=== PATIENT | female | born 1965 | race Caucasian/White ===

== ENCOUNTER → 2019-05-05 08:59 | Outpatient (BNVA) | payer MEDICAID, SELFPAY | PROVIDERS: Family Provider Family Medicine; PCP Family Medicine; Visit Provider Anesthesiology | DX: G89.29 Other chronic pain (principal); M51.17 Intervertebral disc disorders with radiculopathy, lumbosacral region; M47.816 Spondylosis without myelopathy or radiculopathy, lumbar region; M51.27 Other intervertebral disc displacement, lumbosacral region; M54.2 Cervicalgia; F17.210 Nicotine dependence, cigarettes, uncomplicated | CPT/HCPCS: 62323; 77003; J1040; J2001; J3490 ==

== ENCOUNTER 2019-05-09 09:09 | Outpatient (CLI) | payer MEDICAID, SELFPAY ==
[2019-05-09 09:23] VITALS: BMI 30.9
--- NOTE | 2019-05-09 09:29 | ECG_ITS ---
NAME OF STUDY: LEXISCAN SESTAMIBI STRESS TEST INDICATION: Chest Pain PROCEDURE: At the baseline, the EKG revealed sinus bradycardia with poor R wave progression. Possible old septal ME.. The baseline blood pressure was 130/88 mm Hg with a heart rate of82 beats/min. Lexiscan was infused over a period of 20 seconds. A total of 0.4 milligrams of Lexiscan was infused. The stress phase was continued for a total of 5 minutes. Heart rate at the end of the stress phase was 83 with a blood pressure 142/88. The EKG at the peak infusion revealed no significant changes. Sestamibi was injected 20 seconds after the Lexiscan infusion. Blood pressure at the end of the recovery phase was 127/71 with a heart rate of 80 per minute. CONCLUSION: 1. No significant EKG changes with the LexiScan infusion 2. No LexiScan induced chest pain or cardiac arrhythmia 3. Normal blood pressure and heart rate response 4. Sestamibi/sestamibi perfusion scan pending; see separate report. Electronically Signed On 05-10-2019 10:02:57 MACHINE CLOTH EXAMINER by Jimmy Shaffer M.D. [email or web address]
--- NOTE | 2019-05-09 09:29 | NMCV_ITS ---
Vanita Ibrahim Age: 53 Gender: F : 1965 Exam Date: 05/09/2019 11:00 Ordering Phys: Devi Meade MD Technologist: KAMI Golden Exam Location: [facility] Indications: Chest Pain STRESS TEST Please see separate stress test report in [facility] for full findings IMAGE PROTOCOL Rest/Stress 1 Lexiscan Day Radiopharmaceutical Dose (mCi) Administration Site Administered by Rest: Tc-99m 10.5 IV KAMI Golden Sestamibi Stress:Tc-99m 32.6 IV KAMI Golden Sestamibi Rest: 09-May-2019 60 Discovery 630 Stress: 09-May-2019 60 Discovery 630 0.4mg Lexiscan. Images obtained in supine and prone position. SPECT RESULTS Technical Quality: Good Raw Data Analysis: Normal, Breast attenuation. 46DD chest wall Image Corrections: No attenuation or motion correction applied Summed Stress Score: 0 Summed Rest Score: 0 Summed Difference Score: 0 PERFUSION FINDINGS Slightly decreases uptake was noted in the anteroseptal regions but no significant reversibility. FUNCTIONAL RESULTS (calculated via Gated SPECT) Stress Image LV EF (%): 72 Stress EDV (mL):76 TID: 0.91 Stress ESV (mL):21 FUNCTIONAL FINDINGS: Segmental wall motion analysis revealed no gross wall motion normalities. IMPRESSIONS 1. Myocardial perfusion is revealing small areas of slightly decreased persistent tracer uptake in the anteroseptal regions, most likely represent attenuation artifacts. 2. Normal LV ejection fraction 72%. 3. LV wall motion analysis revealing no gross wall motion normalities. 4. Normal LV volume. No significant coronary ischemia, based on the above findings Dr Jimmy Shaffer MD FACC (Electronically Signed) Final Date: 09 May 2019 17:22 S
--- NOTE | 2019-05-09 12:13 | SUR.PREOP ---
Patient reports no pain or discomfort prior to the start of the procedure.
[2019-05-09] MEDS: regadenoson 0.4 Mg/5 ml Syringe IVP (12:14)
[2019-05-09 12:22] VITALS: BP 138/79; PULSE 91
== END 2019-05-09 09:10 | disposition home or self-care (01) ==
LOC: CDL 09:11
PROVIDERS: Family Provider Family Medicine; PCP Family Medicine; Visit Provider Family Medicine
DX: R07.9 Chest pain, unspecified (principal)
CPT/HCPCS: 78452; 93017; A9500; J2785

== ENCOUNTER → 2019-06-03 08:31 | Outpatient (BNVA) | payer MEDICAID, SELFPAY | PROVIDERS: Family Provider Family Medicine; PCP Family Medicine; Visit Provider Anesthesiology | DX: G89.29 Other chronic pain (principal); M47.816 Spondylosis without myelopathy or radiculopathy, lumbar region; M51.17 Intervertebral disc disorders with radiculopathy, lumbosacral region; M51.27 Other intervertebral disc displacement, lumbosacral region; M79.651 Pain in right thigh; M79.652 Pain in left thigh; F17.210 Nicotine dependence, cigarettes, uncomplicated; Z79.891 Long term (current) use of opiate analgesic; Z71.6 Tobacco abuse counseling | CPT/HCPCS: 99214 ==

== ENCOUNTER → 2019-09-21 10:28 | Outpatient (BNVA) | payer MEDICAID, SELFPAY | PROVIDERS: Family Provider Family Medicine; PCP Family Medicine; Visit Provider Nurse Practitioner | DX: G89.29 Other chronic pain (principal); M51.27 Other intervertebral disc displacement, lumbosacral region; M54.9 Dorsalgia, unspecified; M54.2 Cervicalgia; F17.210 Nicotine dependence, cigarettes, uncomplicated; Z79.891 Long term (current) use of opiate analgesic | CPT/HCPCS: 99213; 99214 ==

== ENCOUNTER → 2019-11-29 08:40 | Outpatient (BNVA) | payer MEDICAID, SELFPAY | PROVIDERS: Family Provider Family Medicine; PCP Family Medicine; Visit Provider Anesthesiology | DX: G89.29 Other chronic pain (principal); M54.2 Cervicalgia; M47.816 Spondylosis without myelopathy or radiculopathy, lumbar region; M51.17 Intervertebral disc disorders with radiculopathy, lumbosacral region; M51.27 Other intervertebral disc displacement, lumbosacral region; M54.9 Dorsalgia, unspecified; F17.210 Nicotine dependence, cigarettes, uncomplicated; Z79.891 Long term (current) use of opiate analgesic | CPT/HCPCS: 99214 ==

== ENCOUNTER 2020-01-11 07:10 | Outpatient (CLI) | payer MEDICAID, SELFPAY ==
--- NOTE | 2020-01-11 07:25 | MM_ITS ---
WS: [id number] BILATERAL SCREENING DIGITAL MAMMOGRAM WITH CAD HISTORY: SCREEN COMPARISON: 12/02/2018 and 04/08/2017 Bilateral CC and MLO views submitted. Computer aided detection analyzed. Breast composition: There are scattered areas of fibroglandular density. No suspicious masses, microc alcifications or architectural distortion. Stable asymmetry lateral posterior RIGHT breast. MM/[place] [id number] IMPRESSION: BI-RADS: 2-Benign FOLLOW UP: 1 Year Follow-up
== END 2020-01-11 07:11 | disposition home or self-care (01) ==
PROVIDERS: PCP Family Medicine; Visit Provider Family Medicine
DX: Z12.31 Encounter for screening mammogram for malignant neoplasm of breast (principal)
CPT/HCPCS: 77067

== ENCOUNTER 2020-01-25 07:46 | Outpatient (CLI) | payer MEDICAID, SELFPAY ==
--- NOTE | 2020-01-25 08:15 | MR_ITS ---
WS: [id number] MRI CERVICAL SPINE with and without contrast. HISTORY: Multiple sclerosis. COMPARISON: 12/09/2018 Less than 2 mm retrolisthesis of C4 and C5. No fractures or marrow signal abnormality. Mild disc space narrowing and desiccation at C4-5 and C5-6. Craniocervical junction, C1 and C2 relationship, odontoid process and soft tissues are normal. C2-C3: Normal. C3-C4: Normal. C4-C5: Shallow central disc protrusion with contact on the ventral cord. No signal abnormality within the cord or interval change. Mild central and bilateral foraminal stenosis due to disc and osteophyt e disease. C5-C6: Broad-based disc protrusion centrally with mild central and bilateral foraminal stenosis due t o disc osteophyte disease. C6-C7: Normal. C7-T1: Normal. Signal within the cord is normal. No demyelinating lesions are identified. No enhancing lesions are i dentified within the cord to suggest active demyelination. Increased T2 signal in the francisca will be be tter evaluated on the MRI brain to follow. There is very mild heterogeneity within the cervical cord on the postcontrast images. No corresponding findings on the STIR or precontrast imaging. I suspect t his signal abnormality is related to artifact. MR/MR cervical spine wo/w [id number] IMPRESSION: 1. No active demyelination within the cervical cord. 2. Mild central and foraminal stenosis due to disc osteophyte disease at C4-5 and C5-6 is unchanged.
--- NOTE | 2020-01-25 08:15 | MR_ITS ---
WS: [id number] MRI BRAIN WITH AND WITHOUT CONTRAST HISTORY: MS COMPARISON: 12/09/2018 TECHNIQUE: Multiplanar imaging performed through the brain with Prohance 17 ml's IV. No acute infarcts are seen. Moreira-white matter differentiation is well preserved. There are numerous T 2 and FLAIR signal white matter hyperintensities noted bilaterally in the frontal parietal and tempor al subcortical white matter, periventricular white matter, herrera radiata and the francisca. No significan t progression of demyelinating disease. There are no acute infarcts. Area of increased signal at the base of the francisca is probably a crossing vessel. No enhancement. No susceptibility artifacts or prior lacunar infarcts. Ventricles and extra-axial spaces are normal. Clivus and pituitary gland are normal. There is no enhancement within the demyelinating lesions. Dural venous sinuses are normal. Paranasal sinuses: Well aerated with no significant disease. Mastoid air cells: Normal. Calvarium and scalp: Normal. MR/MR head wo/w con [id number] IMPRESSION: 1. Numerous white matter lesions consistent with demyelination from multiple s clerosis are again noted. Stable in size and number with no active demyelinatio n. 2. No acute infarct.
== END 2020-01-25 07:47 | disposition home or self-care (01) ==
LOC: RADWPI 07:50
PROVIDERS: PCP Family Medicine; Visit Provider Psychiatry & Neurology Neurology
DX: G35 Multiple sclerosis (principal); M48.02 Spinal stenosis, cervical region; M25.78 Osteophyte, vertebrae
CPT/HCPCS: 70553; 72156; A9579

== ENCOUNTER → 2020-01-27 08:55 | Outpatient (BNVA) | payer MEDICAID, SELFPAY | PROVIDERS: PCP Family Medicine; Visit Provider Anesthesiology | DX: G89.29 Other chronic pain (principal); M47.816 Spondylosis without myelopathy or radiculopathy, lumbar region; M51.27 Other intervertebral disc displacement, lumbosacral region; M51.17 Intervertebral disc disorders with radiculopathy, lumbosacral region; M54.2 Cervicalgia; M54.9 Dorsalgia, unspecified; F17.210 Nicotine dependence, cigarettes, uncomplicated; Z79.891 Long term (current) use of opiate analgesic | CPT/HCPCS: 99214 ==

== ENCOUNTER 2020-02-08 20:35 | Emergency (ER) | payer MEDICAID, SELFPAY ==
[2020-02-08 20:42] VITALS: BP 116/80; PULSE 104; RESP 18; TEMP 36.4; O2SAT 97; BMI 31.7
--- NOTE | 2020-02-08 20:51 | ED_ITS ---
HPI - Back Pain/Injury General: Chief Complaint: Back Pain/Injury Stated Complaint: BACK PAIN Time Seen by Provider: 02/08/20 20:48 History of Present Illness: HPI Narrative: History of chronic back pain that had many exacerbations. Patient is 1 of those presently. Says she spent the whole day clean the house now her back hurts. Denies any injury. The pain clinic patient. MD elicited complaint: back pain Pertinent past history: prior back pain Onset (ago): hour(s) Timing: constant Severity: similar to previous episodes Similar Symptoms Previously: Yes Quality: sharp and stabbing Location: lumbar spine Radiation: left upper leg and right upper leg Exacerbating factors: movement Relieving factors: none Context: while lifting, turning/twisting and bending Associated symptoms: Reports no associated symptoms; Deny abdominal pain, chills, fever(s), nausea or vomiting Review of Systems Const: Denies: fever(s), chills or body aches Eyes: Denies: change in vision or blurry vision ENMT: Denies: throat pain or nasal congestion Card: Denies: chest pain or dyspnea on exertion Resp: Denies: dyspnea, productive cough or non-productive cough GI: Denies: abdominal pain, nausea or vomiting Musc: Reports: back pain; Denies: extremity pain Skin/Breast: Denies: rash Neuro: Denies: headache(s) Psych: Denies: anxiety or depression Moy/Lymph: Denies: easy bruising PFSH ED PFSH: Medical History Arthritis of lumbar spine Chronic neck and back pain Cigarette smoker Displacement of intervertebral disc of lumbosacral region Encounter for long-term use of opiate analgesic Opioid contract exists Sciatic 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, lumbar region Surgical History H/O arthroscopic knee surgery History of cholecystectomy History of hysterectomy Family History Other CAD (coronary artery disease) Cancer Diabetes Stroke Social History Smoking and tobacco status: current every day smoker cigarettes Packs smoked per day: 1 Alcohol intake: former Physical Exam Const: COMMON NORMALS: no acute distress, average body habitus and patient oriented x3 HENMT: COMMON NORMALS: normocephalic HEAD & SCALP: normal to inspection and normocephalic FACE & SINUS: normal facial exam Eye: COMMON NORMALS: conjunctivae normal GENERAL EYE: appearance normal, both eyes and all related structures CONJUNCTIVA: Yes conjunctivae normal Neck/C-Spine: COMMON NORMALS: no JVD Chest: COMMONS NORMALS: normal inspection of the chest Resp: COMMON NORMALS: normal respiratory effort Cardio: COMMON NORMALS: no JVD and regular rhythm RATE: tachycardic RHYTHM: regular rhythm GI: COMMON NORMALS: Normal to inspection, nondistended, normoactive bowel sounds present Back/Pelvis: LUMBAR SPINE/LOWER BACK: Yes straight leg raise positive right and Yes straight leg raise positive left Extremity: COMMON NORMALS: normal to inspection Neuro: COMMON NORMALS: patient oriented x3 Course Vital Signs: Vital signs: Vital Signs Temperature 97.6 F 02/08/20 20:42 Pulse Rate 104 H 02/08/20 20:42 Respiratory Rate 18 02/08/20 20:42 Blood Pressure 116/80 02/08/20 20:42 Pulse Oximetry 97 02/08/20 20:42 Discharge Plan Discharge Prescriptions: No Action duloxetine [Cymbalta] 60 mg capsule,delayed release(DR/EC) 60 mg PO QDAY RF: 0 cyanocobalamin (vitamin B-12) [Vitamin B-12] 100 mcg tablet 300 mcg PO QDAY RF: 0 cholecalciferol (vitamin D3) 1,000 unit capsule 3,000 unit PO QDAY RF: 0 potassium gluconate 595 mg (99 mg) tablet 1,785 mg PO QDAY RF: 0 pramipexole 0.25 mg tablet 0.75 mg PO QDAY RF: 0 Gilenya 0.5 mg capsule 0.5 mg PO QDAY RF: 0 lisinopril 10 mg tablet 10 mg PO BID RF: 0 modafinil [Provigil] 100 mg tablet 200 mg PO .1/2 TID RF: 0 furosemide 20 mg tablet See Rx Instructions PO DAILY PRN (Reason: edema) RF: 0 omeprazole 20 mg capsule,delayed release(DR/EC) 20 mg PO DAILY RF: 0 magnesium 250 mg tablet 250 mg PO DAILY RF: 0 hydrocodone-acetaminophen 10-325 mg tablet 1 tab PO QID PRN (Reason: pain) 30 Days Qty: 120 RF: 0 hydrocodone-acetaminophen 10-325 mg tablet 1 tab PO QID PRN (Reason: pain) 30 Days Qty: 120 RF: 0 tramadol 50 mg tablet 50 mg PO QID PRN (Reason: pain) 30 Days Qty: 120 RF: 1 tizanidine 4 mg tablet 4 mg PO TID PRN (Reason: muscle spasticity) Qty: 90 RF: 1 naproxen 500 mg tablet,delayed release (DR/EC) 500 mg PO BID 30 Days Qty: 60 RF: 1 Coding Level of Care Code ED Process Supervisor for Shaniqua Palumbo
[2020-02-08] MEDS: ketorolac 60 mg/2 mL INJ IM (21:28)
[2020-02-08] MEDS: methylPREDNISolone (DEPO) 80 MG/ML INJ 1 mL IM (21:29)
[2020-02-08] MEDS: promethazine 25 mg/mL SDV 1 mL IM (21:29)
[2020-02-08 21:49] VITALS: PULSE 86; RESP 17; O2SAT 98
[2020-02-08 21:50] VITALS: BP 116/83; PULSE 82; RESP 16; O2SAT 97
== END 2020-02-08 21:51 | disposition home or self-care (01) ==
PROVIDERS: Emergency Provider Nurse Practitioner Family; PCP Family Medicine
DX: M54.9 Dorsalgia, unspecified (principal); F17.210 Nicotine dependence, cigarettes, uncomplicated
CPT/HCPCS: 12345; 96372; 99281; 99283; J1040; J1885; J2550

== ENCOUNTER 2020-02-23 12:00 | Outpatient (CLI) | payer MEDICAID, SELFPAY | END 2020-02-23 12:01 | disposition home or self-care (01) | LOC: SLEEP 02-24 11:58 | PROVIDERS: PCP Family Medicine; Visit Provider Psychiatry & Neurology Neurology | DX: G47.30 Sleep apnea, unspecified (principal) | CPT/HCPCS: G0399 ==

== ENCOUNTER → 2020-03-22 10:34 | Outpatient (BNVA) | payer MEDICARE, MEDICAID, SELFPAY | PROVIDERS: PCP Family Medicine; Visit Provider Anesthesiology | DX: G89.29 Other chronic pain (principal); M47.816 Spondylosis without myelopathy or radiculopathy, lumbar region; M51.27 Other intervertebral disc displacement, lumbosacral region; M51.17 Intervertebral disc disorders with radiculopathy, lumbosacral region; M54.2 Cervicalgia; M54.9 Dorsalgia, unspecified; F17.210 Nicotine dependence, cigarettes, uncomplicated; Z79.891 Long term (current) use of opiate analgesic; Z79.1 Long term (current) use of non-steroidal anti-inflammatories (NSAID) | CPT/HCPCS: 99214 ==

== ENCOUNTER → 2020-05-02 09:53 | Outpatient (BNVA) | payer MEDICARE, MEDICAID, SELFPAY | PROVIDERS: PCP Family Medicine; Visit Provider Nurse Practitioner | DX: G89.29 Other chronic pain (principal); M54.9 Dorsalgia, unspecified; M47.816 Spondylosis without myelopathy or radiculopathy, lumbar region; M51.17 Intervertebral disc disorders with radiculopathy, lumbosacral region; M51.27 Other intervertebral disc displacement, lumbosacral region; M54.2 Cervicalgia; F17.210 Nicotine dependence, cigarettes, uncomplicated; Z79.891 Long term (current) use of opiate analgesic | CPT/HCPCS: 99213 ==

== ENCOUNTER 2020-06-14 06:59 | Outpatient (CLI) | payer MEDICARE, MEDICAID, SELFPAY ==
[2020-06-14 07:21] VITALS: BMI 33.1
--- NOTE | 2020-06-14 07:26 | ECG_ITS ---
[facility] Test Date: 2020-06-14 Pat Name: Vanita Ibrahim Department: Room: Gender: Female Contracts Intern: : 1965 Requested By: Devi Carson Order Number: [id number] Velasquez MD: Carla Najera M.D. Interpretive Statements NAME OF STUDY: EXERCISE SESTAMIBI STRESS TEST INDICATION: Chest Pain Baseline blood pressure of 126/88 mm Hg, heart rate 76 beats per minute and oxygen saturation 97%. EKG showed normal sinus rhythm, normal axis with possible old anteroseptal infarct. The patient exercised for 5 minutes 1 second on a standard Vernon protocol. Patient attained a maximum heart rate of 152 beats per minute(90% of the maximum predicted heart rate) with a blood pressure at the peak exercise of 164/91 mm Hg and oxygen saturation 98%. The EKG at the peak exercise revealed sinus tachycardia. No significant ST-T wave changes however interpretation limited by marked baseline artifact. Patient did not have any chest pain or any significant arrhythmis with the exercise. Study was terminated due to exertional dyspnea and fatigue. During the recovery phase, there were no new changes. Blood pressure at the end of the recovery phase was 120/79 mm Hg with a heart rate of 92 beats per minute and oxygen saturation 96%. CONCLUSION: 1. Normal EKG response to treadmill exercise. However interpretation is of limited sensitivity given marked baseline artifact during exercise. 2. No exercise-induced chest pain or cardiac arrhythmia 3. Decreased for age exercise tolerance, attained a maximum of 7 METs. Maximum VO2 of 24.5 mL/kg/min. 4. Baseline normal blood pressure with normal response to exercise. 5. Perfusion scan will be documented separately. Electronically Signed On 06-14-2020 12:23:35 ERISA ATTORNEY by Carla Najera M.D. [id number]
--- NOTE | 2020-06-14 07:27 | NMCV_ITS ---
NM nancy perf SPECT r/s* [id number] Vanita Ibrahim Age: 54 Gender: F : 1965 Exam Date: 06/14/2020 08:10 Ordering Phys: Devi Meade MD Technologist: KAMI Lamb Exam Location: [facility] Indications: CHEST PAIN STRESS TEST Please see separate stress test report [facility] for full findings IMAGE PROTOCOL Rest/Stress 1 Exercise Day Radiopharmaceutical Dose (mCi) Administration Site Administered by Rest: Tc-99m 10.8 IV KAMI Cesar Sestamibi Stress:Tc-99m 32.3 IV KAMI Cesar Sestamibi Rest: 14-Jun-2020 60 Discovery 630 Stress: 14-Jun-2020 15 Discovery 630 Radiopharmaceutical was injected at 85 % maximum heart rate. Images obtained in supine and prone position. SPECT RESULTS Technical Quality: Excellent Raw Data Analysis: Normal Image Corrections: No attenuation or motion correction applied Summed Stress Score: 0 Summed Rest Score: 0 Summed Difference Score: 0 PERFUSION FINDINGS SPECT images demonstrate homogeneous tracer distribution throughout the myocardium. FUNCTIONAL RESULTS (calculated via Gated SPECT) Stress Image LV EF (%): 77 Stress EDV (mL):73 TID: 0.76 Stress ESV (mL):17 FUNCTIONAL FINDINGS: The left ventricle is normal in size. Transient Ischemia Dilatation of 0.76. There is normal left ventricular systolic function. The left ventricular ejection fraction is normal with a value of 77%. There is normal left ventricular wall thickening. No regional wall motion abnormality. Normal end-diastolic and end-systolic volumes. IMPRESSIONS 1. Myocardial perfusion imaging is normal. 2. Overall left ventricular systolic function is normal without regional wall motion abnormalities. 3. The left ventricular ejection fraction is normal with a value of 77%. 4. This study suggests a low likelihood of angiographically significant coronary artery disease. 5. No ischemic EKG changes noted, however interpretation was limited by marked baseline artifact. Refer to the EKG portion of the study for details Carla Najera MD (Electronically Signed) Final Date: 14 June 2020 12:31 S
--- NOTE | 2020-06-14 08:58 | SUR.PREOP ---
Patient reports no pain or discomfort prior to the start of the stress test.
[2020-06-14 09:30] VITALS: BP 119/63; PULSE 90
== END 2020-06-14 07:00 | disposition home or self-care (01) ==
LOC: CDL 07:00
PROVIDERS: PCP Family Medicine; Visit Provider Family Medicine
DX: R07.9 Chest pain, unspecified (principal)
CPT/HCPCS: 78452; 93017; A9500

== ENCOUNTER → 2020-06-27 09:03 | Outpatient (BNVA) | payer MEDICARE, MEDICAID, SELFPAY | PROVIDERS: PCP Family Medicine; Visit Provider Nurse Practitioner | DX: G89.29 Other chronic pain (principal); M54.2 Cervicalgia; M54.9 Dorsalgia, unspecified; M51.17 Intervertebral disc disorders with radiculopathy, lumbosacral region; M51.27 Other intervertebral disc displacement, lumbosacral region; M47.816 Spondylosis without myelopathy or radiculopathy, lumbar region; F17.210 Nicotine dependence, cigarettes, uncomplicated; Z79.891 Long term (current) use of opiate analgesic; Z71.6 Tobacco abuse counseling | CPT/HCPCS: 99213; 99214 ==

== ENCOUNTER 2020-07-30 20:00 | Outpatient (CLI) | payer MEDICARE, MEDICAID, SELFPAY | END 2020-07-30 20:01 | disposition home or self-care (01) | LOC: SLEEP 07-31 11:11 | PROVIDERS: PCP Family Medicine; Visit Provider Internal Medicine Pulmonary Disease | DX: G47.33 Obstructive sleep apnea (adult) (pediatric) (principal) | CPT/HCPCS: 95811 ==

== ENCOUNTER 2020-07-31 07:00 | Outpatient (CLI) | payer MEDICARE, MEDICAID, SELFPAY | END 2020-07-31 20:01 | disposition home or self-care (01) | LOC: SLEEP 08-08 11:31 | PROVIDERS: PCP Family Medicine; Visit Provider Internal Medicine Pulmonary Disease | DX: G47.10 Hypersomnia, unspecified (principal) | CPT/HCPCS: 95805 ==

== ENCOUNTER 2020-08-24 13:55 | Outpatient (CLI) | payer MEDICARE, MEDICAID, SELFPAY ==
--- NOTE | 2020-08-24 14:07 | XR_ITS ---
WS: [id number] Right hand, 3 views, 08/24/2020 Clinical Data: RIGHT TRIGGER THUMB Comparison: None. Findings: No fractures or dislocations are seen. The soft tissues are unremarkable. The joint space s are normal XR/XR hand RT min 3V* [id number] Impression: Negative right hand.
== END 2020-08-24 13:56 | disposition home or self-care (01) ==
PROVIDERS: PCP Family Medicine; Visit Provider Family Medicine
DX: M65.311 Trigger thumb, right thumb (principal)
CPT/HCPCS: 73130

== ENCOUNTER → 2020-08-31 08:43 | Outpatient (BNVA) | payer MEDICARE, MEDICAID, SELFPAY | PROVIDERS: PCP Family Medicine; Visit Provider Nurse Practitioner | DX: G89.29 Other chronic pain (principal); M54.9 Dorsalgia, unspecified; M51.17 Intervertebral disc disorders with radiculopathy, lumbosacral region; M51.27 Other intervertebral disc displacement, lumbosacral region; M47.816 Spondylosis without myelopathy or radiculopathy, lumbar region; M54.2 Cervicalgia; F17.210 Nicotine dependence, cigarettes, uncomplicated; Z79.899 Other long term (current) drug therapy; Z79.891 Long term (current) use of opiate analgesic | CPT/HCPCS: 99214 ==

== ENCOUNTER → 2020-09-03 11:05 | Outpatient (BNVA) | payer MEDICARE, MEDICAID, SELFPAY | PROVIDERS: PCP Family Medicine; Referring Provider Family Medicine; Visit Provider Specialist | DX: R20.0 Anesthesia of skin (principal); R20.2 Paresthesia of skin; F17.210 Nicotine dependence, cigarettes, uncomplicated | CPT/HCPCS: 95908 ==

== ENCOUNTER 2020-09-05 15:05 | Outpatient (CLI) | payer MEDICARE, MEDICAID, SELFPAY | END 2020-09-05 15:06 | disposition home or self-care (01) | LOC: SPT 15:06 | PROVIDERS: PCP Family Medicine; Visit Provider Orthopaedic Surgery | DX: Z46.89 Encounter for fitting and adjustment of other specified devices (principal); M65.311 Trigger thumb, right thumb; G56.01 Carpal tunnel syndrome, right upper limb | CPT/HCPCS: 97760; L3809 ==

== ENCOUNTER → 2020-09-13 14:25 | Outpatient (BNVA) | payer MEDICARE, MEDICAID, SELFPAY | PROVIDERS: PCP Family Medicine; Visit Provider Internal Medicine Pulmonary Disease | DX: J44.9 Chronic obstructive pulmonary disease, unspecified (principal) | CPT/HCPCS: 87635 ==

== ENCOUNTER 2020-09-19 07:43 | Outpatient (CLI) | payer MEDICARE, MEDICAID, SELFPAY ==
--- NOTE | 2020-09-19 09:46 | PFTS_ITS ---
Date of Study:09/19/20 Date of Dictation: MECHANICS: Forced vital capacity (FVC) is normal. Forced expiratory volume in one second (FEV1) is normal. FEV1/FVC is normal. FLOW VOLUME LOOP: Normal. LUNG VOLUMES: Total lung capacity (TLC) is normal. Residual volume (RV) is increased. DIFFUSING CAPACITY FOR CARBON MONOXIDE: Normal. INTERPRETATION: The postbronchodilator spirometry is normal. There is some improvement in FEV1 postbronchodilator, however it did not reach a steady state of significance. Lung volumes are consistent with air trapping. Gas exchange (DLCO) is normal. MTDD
== END 2020-09-19 07:44 | disposition home or self-care (01) ==
LOC: RT 07:47
PROVIDERS: PCP Family Medicine; Visit Provider Internal Medicine Pulmonary Disease
DX: J44.9 Chronic obstructive pulmonary disease, unspecified (principal)
CPT/HCPCS: 94060; 94726; 94729; J7611

== ENCOUNTER → 2020-11-02 08:21 | Outpatient (BNVA) | payer MEDICARE, MEDICAID, SELFPAY | PROVIDERS: PCP Family Medicine; Visit Provider Nurse Practitioner | DX: G89.29 Other chronic pain (principal); M51.17 Intervertebral disc disorders with radiculopathy, lumbosacral region; M47.816 Spondylosis without myelopathy or radiculopathy, lumbar region; M54.2 Cervicalgia; F17.210 Nicotine dependence, cigarettes, uncomplicated; Z79.891 Long term (current) use of opiate analgesic; Z71.6 Tobacco abuse counseling | CPT/HCPCS: 99214; 99406 ==

== ENCOUNTER → 2020-12-04 08:42 | Outpatient (BNVA) | payer MEDICARE, MEDICAID, SELFPAY | PROVIDERS: PCP Family Medicine; Visit Provider Nurse Practitioner | DX: G89.29 Other chronic pain (principal); M47.816 Spondylosis without myelopathy or radiculopathy, lumbar region; M51.27 Other intervertebral disc displacement, lumbosacral region; M51.17 Intervertebral disc disorders with radiculopathy, lumbosacral region; M54.2 Cervicalgia; F17.210 Nicotine dependence, cigarettes, uncomplicated; Z79.891 Long term (current) use of opiate analgesic | CPT/HCPCS: 99214 ==

== ENCOUNTER → 2021-01-02 09:00 | Outpatient (BNVA) | payer MEDICARE, MEDICAID, SELFPAY | PROVIDERS: PCP Family Medicine; Visit Provider Nurse Practitioner | DX: G89.29 Other chronic pain (principal); M51.17 Intervertebral disc disorders with radiculopathy, lumbosacral region; M47.816 Spondylosis without myelopathy or radiculopathy, lumbar region; M51.27 Other intervertebral disc displacement, lumbosacral region; M54.2 Cervicalgia; R20.0 Anesthesia of skin; R20.2 Paresthesia of skin; F17.210 Nicotine dependence, cigarettes, uncomplicated; Z79.891 Long term (current) use of opiate analgesic; Z71.6 Tobacco abuse counseling | CPT/HCPCS: 99213; 99214 ==

== ENCOUNTER → 2021-02-27 08:35 | Outpatient (BNVA) | payer MEDICARE, MEDICAID, SELFPAY | PROVIDERS: PCP Family Medicine; Visit Provider Anesthesiology | DX: G89.29 Other chronic pain (principal); M47.816 Spondylosis without myelopathy or radiculopathy, lumbar region; M51.27 Other intervertebral disc displacement, lumbosacral region; M51.17 Intervertebral disc disorders with radiculopathy, lumbosacral region; M54.2 Cervicalgia; F17.200 Nicotine dependence, unspecified, uncomplicated; Z79.891 Long term (current) use of opiate analgesic; Z79.899 Other long term (current) drug therapy; Z71.6 Tobacco abuse counseling | CPT/HCPCS: 99214 ==

== ENCOUNTER → 2021-04-26 08:51 | Outpatient (BNVA) | payer MEDICARE, MEDICAID, SELFPAY | PROVIDERS: PCP Family Medicine; Visit Provider Anesthesiology | DX: G89.29 Other chronic pain (principal); M47.816 Spondylosis without myelopathy or radiculopathy, lumbar region; M51.27 Other intervertebral disc displacement, lumbosacral region; M51.17 Intervertebral disc disorders with radiculopathy, lumbosacral region; M54.2 Cervicalgia; F17.200 Nicotine dependence, unspecified, uncomplicated; Z79.899 Other long term (current) drug therapy; Z79.891 Long term (current) use of opiate analgesic | CPT/HCPCS: 99214 ==

== ENCOUNTER 2021-07-30 14:48 | Outpatient (CLI) | payer MEDICARE, MEDICAID, SELFPAY ==
--- NOTE | 2021-07-30 14:55 | MM_ITS ---
WS: [id number] BILATERAL 3D TOMOSYNTHESIS DIGITAL SCREENING MAMMOGRAPHY WITH CAD CLINICAL INFORMATION: SCREENING HISTORY: Screening mammogram. No current complaints. COMPARISON: January 11, 2020 TECHNIQUE: Bilateral CC and MLO views. FINDINGS: Scattered fibroglandular densities bilaterally. No suspicious focal mass, asymmetry, calcifications, or architectural distortion. No evidence of malignancy. MM/[place] [id number] IMPRESSION: BI-RADS: 1-Negative FOLLOW UP: 1 Year Follow-up Recommend return to annual screening mammography.
== END 2021-07-30 14:49 | disposition home or self-care (01) ==
LOC: RAD 14:51
PROVIDERS: PCP Family Medicine; Visit Provider Family Medicine
DX: Z12.31 Encounter for screening mammogram for malignant neoplasm of breast (principal)
CPT/HCPCS: 77063; 77067

== ENCOUNTER → 2021-10-11 09:50 | Outpatient (BNVA) | payer MEDICARE, MEDICAID, SELFPAY | PROVIDERS: PCP Family Medicine; Visit Provider Internal Medicine Pulmonary Disease | DX: G47.33 Obstructive sleep apnea (adult) (pediatric) (principal); F17.210 Nicotine dependence, cigarettes, uncomplicated; J44.9 Chronic obstructive pulmonary disease, unspecified; Z12.2 Encounter for screening for malignant neoplasm of respiratory organs; Z71.6 Tobacco abuse counseling | CPT/HCPCS: 99214 ==

== ENCOUNTER 2022-02-27 09:49 | Outpatient (CLI) | payer MEDICARE, MEDICAID, SELFPAY ==
--- NOTE | 2022-02-27 10:33 | CT_ITS ---
WS: [id number] LDCT LUNG CANCER SCREENING HISTORY: lung screening TECHNIQUE: Axial imaging performed from the apices to 1 cm below the costophrenic angles. Coronal and sagittal reformats are submitted with axial MIP series. All CT scans at [facility] use at least one of these dose optimization techniques: automated exposure control; mA and/or kV adjustment per patient size (includes targeted exams where dose is matched to clinical indication); or iterativ e reconstruction. DLP: 82.30 mGy.cm DIvol: Mean CTDIvol: 1.60 (mGy) COMPARISON: None available. Diagnostic quality: Satisfactory Lung Nodules: No pulmonary nodule or mass. No endobronchial lesions. Lungs: No abnormality. Heart: Normal size heart. No pericardial effusion. Other findings: Normal aorta. Prior cholecystectomy. CT/CT lung screening [id number] IMPRESSION: LUNG-RADS: 1-Negative FOLLOW UP: 12 Month: Continue annual screening with LDCT OTHER FINDINGS (S MODIFIER): None.
== END 2022-02-27 09:50 | disposition home or self-care (01) ==
LOC: RAD 09:50
PROVIDERS: PCP Family Medicine; Visit Provider Internal Medicine Pulmonary Disease
DX: Z12.2 Encounter for screening for malignant neoplasm of respiratory organs (principal); F17.210 Nicotine dependence, cigarettes, uncomplicated
CPT/HCPCS: 71271

== ENCOUNTER 2022-03-01 21:19 | Emergency (ER) | payer MEDICARE, MEDICAID, SELFPAY ==
[2022-03-01 21:23] VITALS: BP 132/80; PULSE 92; RESP 18; TEMP 37.5; O2SAT 92
--- NOTE | 2022-03-01 21:31 | XRR_ITS ---
PROCEDURE INFORMATION: Exam: XR Chest Exam date and time: 03/01/2022 11:03 PM Age: 56 years old Clinical indication: Cough; Additional info: Cough, fever TECHNIQUE: Imaging protocol: Radiologic exam of the chest. Views: 1 view. COMPARISON: CR XR chest 1V [id number] 10/08/2017 8:35 PM FINDINGS: Lungs: No consolidation. Pleural spaces: No pleural effusion. No pneumothorax. Heart/Mediastinum: No cardiomegaly. Bones/joints: Unremarkable. XR/XR chest 1V portable [id number] IMPRESSION: 1. No acute abnormality demonstrated. 2. There is no interval change from the prior examination.
--- NOTE | 2022-03-01 21:45 | ED_ITS ---
HPI - Fever General: Chief Complaint: Fever Stated Complaint: FEVER Time Seen by Provider: 03/01/22 21:38 History of Present Illness: A 56-year-old female comes in today with complaints of fever for the last 2 days. Patient has generalized malaise. Patient appears unwell but not toxic. Patient appears in mild to no pain. Associated symptoms: Deny chest pain, diarrhea, nausea or vomiting Review of Systems Const: Reports: fever(s) and fatigue ENMT: Denies: throat pain Card: Denies: chest pain Resp: Denies: dyspnea GI: Denies: nausea, vomiting, diarrhea or constipation : Denies: difficulty voiding Musc: Reports: other (Muscle aches) Skin/Breast: Denies: rash PFSH ED PFSH: Medical History Arthritis of lumbar spine Chronic neck and back pain Cigarette smoker Displacement of intervertebral disc of lumbosacral region Encounter for long-term use of opiate analgesic Opioid contract exists Sciatic radiculitis Smoker unmotivated to quit Spondylosis without myelopathy or radiculopathy, lumbar region Surgical History H/O arthroscopic knee surgery History of cholecystectomy History of hysterectomy Family History Other CAD (coronary artery disease) Cancer Diabetes Stroke Social History Smoking and tobacco status: current every day smoker cigarettes Packs smoked per day: 1.5 Years cigarettes smoked: 35 Quit status (tobacco): considering quitting Second hand smoke exposure: No Smoking risk assessment/counseling performed?: Yes Alcohol intake: former Lives independently: Yes Household members: significant other Marital status: Life Partner Current occupational status: disabled Pets and animals: Yes History of recent travel: No Current gender identity: Female Physical Exam Const: COMMON NORMALS: alert HENMT: COMMON NORMALS: normocephalic HEAD & SCALP: normocephalic Eye: GENERAL EYE: appearance normal, both eyes and all related structures Neck/C-Spine: COMMON NORMALS: full ROM and no meningeal signs Chest: COMMONS NORMALS: normal inspection of the chest Resp: COMMON NORMALS: normal respiratory effort and clear to auscultation bilaterally AUSCULTATION: clear to auscultation bilaterally Cardio: COMMON NORMALS: regular rate and regular rhythm RATE: regular rate RHYTHM: regular rhythm GI: COMMON NORMALS: Soft to palpation and non-tender PALPATION: Yes Soft to palpation : COMMON NORMALS: Yes no CVA tenderness BLADDER/KIDNEY EXAM: Yes no CVA tenderness Back/Pelvis: COMMON NORMALS: no CVA tenderness Extremity: COMMON NORMALS: no pedal edema Neuro: SENSORIUM/ORIENTATION: Yes alert MENINGEAL SIGNS: Yes no meningeal signs Skin: COMMON NORMALS: no rashes or lesions noted GENERAL SKIN EXAM: no rashes or lesions noted Course Vital Signs: Vital signs: Vital Signs Temperature 99.5 F 03/01/22 21:23 Pulse Rate 79 03/01/22 22:16 Respiratory Rate 16 03/01/22 22:16 Blood Pressure 100/56 03/01/22 22:16 Pulse Oximetry 90 03/01/22 22:16 Oxygen Delivery Me thod 03/01/22 22:16 MDM - Fever Medical Decision Making A 56-year-old female comes in today with 2-day history of malaise and fever. Patient appears unwell but not toxic. Lungs are clear to auscultation. Skin is warm and dry. Differential diagnosis includes but not limited to viral syndrome, influenza, COVID-19. Chest x-ray was unremarkable. Flu and COVID test were both negative. CBC was unremarkable. CMP did note creatinine 1.4, some elevated liver enzymes which I believe are reactive to a viral syndrome. Patient does have some mild congestion in her nose and believes she has an upper respiratory infection. Encourage patient to drink plenty of fluids use acetaminophen or ibuprofen for pain and fever. Follow-up with primary care for further instruction. Return to ED for new concerns Lab Data : 03/01/22 22:16 03/01/22 22:16 Radiology Impressions Chest X-Ray 03/01/22 21:31 IMPRESSION: 1. No acute abnormality demonstrated. 2. There is no interval change from the prior examination. Laboratory Results WBC 4.2 10^3/uL (4.0-10.0) 03/01/22 22:16 RBC 3.94 10^6/uL (4.1-5.3) L 03/01/22 22:16 Hgb 12.1 g/dL (11.5-15.3) 03/01/22 22:16 Hct 37.3 % (37.0-47.0) 03/01/22 22:16 MCV 94.7 fl (81-99) 03/01/22 22:16 MCH 30.7 pg (28.0-34.0) 03/01/22 22:16 MCHC 32.4 g/dL (30.0-36.0) 03/01/22 22:16 RDW 12.3 % (12.1-15.1) 03/01/22 22:16 Plt Count 288 10^3/cmm (130-400) 03/01/22 22:16 MPV 9.7 fL (7.4-10.4) 03/01/22 22:16 Neut % (Auto) 84.9 % 03/01/22 22:16 Lymph % (Auto) 5.2 % 03/01/22 22:16 [place] % (Auto) 9.0 % 03/01/22 22:16 Eos % (Auto) 0.2 % 03/01/22 22:16 Baso % (Auto) 0.2 % 03/01/22 22:16 Neut # (Auto) 3.56 10^3/uL (1.8-7.7) 03/01/22 22:16 Lymph # (Auto) 0.2 10^3/uL (0.8-4.8) L 03/01/22 22:16 [place] # (Auto) 0.4 10^3/uL (0.2-0.9) 03/01/22 22:16 Eos # (Auto) 0.0 10^3/uL (0.0-0.8) 03/01/22 22:16 Baso # (Auto) 0.0 10^3/uL (0.0-0.1) 03/01/22 22:16 Nucleated RBC % (auto) 0 % 03/01/22 22:16 Nucleated RBCs # 0.0 /100WBC 03/01/22 22:16 Sodium 134 mmol/L (136-145) L 03/01/22 22:16 Potassium 4.0 mmol/L (3.5-5.1) 03/01/22 22:16 Chloride 99 mmol/L (98-107) 03/01/22 22:16 Carbon Dioxide 26 mmol/L (22-29) 03/01/22 22:16 Anion Gap 13.0 (5-19) 03/01/22 22:16 BUN 16 mg/dL (6-20) 03/01/22 22:16 Creatinine 1.4 mg/dL (0.5-0.9) H 03/01/22 22:16 GFR Calculation 39.2 mL/min (90-130) L 03/01/22 22:16 Glucose 107 mg/dL (65-115) 03/01/22 22:16 Calculated Osmolality 280 mOsm/kg (285-295) L 03/01/22 22:16 Calcium 8.7 mg/dL (8.5-10.5) 03/01/22 22:16 Total Bilirubin 0.2 mg/dL (0.15-1.2) 03/01/22 22:16 AST 48 U/L (0-32) H 03/01/22 22:16 ALT 56 U/L (0-33) H 03/01/22 22:16 Alkaline Phosphatase 164 U/L (35-105) H 03/01/22 22:16 C-Reactive Protein 31.3 mg/L (0.0-4.9) H 03/01/22 22:16 Total Protein 6.7 g/dL (6.6-8.7) 03/01/22 22:16 Albumin 3.9 g/dL (3.5-5.2) 03/01/22 22:16 Globulin 2.8 g/dL (1.3-4.6) 03/01/22 22:16 Influenza Type A Ag negative (Negative) 03/01/22 21:48 Influenza Type B Ag negative (Negative) 03/01/22 21:48 SARS-CoV-2 Ag (Rapid) negative (Negative) 03/01/22 21:48 Discharge Plan Discharge Patient Disposition: Home Clinical Impression: Viral syndrome Condition: Stable Prescriptions: No Action duloxetine [Cymbalta] 60 mg capsule,delayed release(DR/EC) 60 mg PO QDAY cyanocobalamin (vitamin B-12) [Vitamin B-12] 100 mcg tablet 300 mcg PO QDAY cholecalciferol (vitamin D3) 1,000 unit capsule 3,000 unit PO QDAY potassium gluconate 595 mg (99 mg) tablet 1,785 mg PO QDAY pramipexole 0.25 mg tablet 0.75 mg PO QDAY Gilenya 0.5 mg capsule 0.5 mg PO QDAY lisinopril 10 mg tablet 10 mg PO BID cefuroxime axetil 250 mg tablet 250 mg PO BID amantadine HCl 100 mg capsule 100 mg PO ONCE tizanidine 4 mg tablet 4 mg PO TID PRN diazepam 10 mg tablet 10 mg PO DIRECTED PRN (Reason: anxiety) Qty: 2 1RF Rx Instructions: Take 1 tab 1 hour before procedure and bring 2nd tab to procedure to take if needed. hydrocodone-acetaminophen 10-325 mg tablet 1 tab PO QID PRN (Reason: pain) 30 Days Qty: 120 0RF Rx Instructions: Fill on or after 05/03/21 tramadol 50 mg tablet 50 mg PO QID PRN (Reason: pain) 30 Days Qty: 120 1RF Rx Instructions: fill on or after 05/10/21 and 06/09/21 furosemide 20 mg tablet See Rx Instructions PO DAILY PRN (Reason: edema) Rx Instructions: 1-2 TABS PO daily PRN; omeprazole 20 mg capsule,delayed release(DR/EC) 20 mg PO DAILY magnesium 250 mg tablet 250 mg PO DAILY docusate sodium 100 mg capsule 100 mg PO BID albuterol sulfate 90 mcg/actuation HFA aerosol inhaler 2 puff inhalation Q6H PRN (Reason: shortness of breath or wheezing) Qty: 8.5 3RF (DME) Thumb Spica Splint See Rx Instructions .ROUTE .MEDSUPPLY Qty: 1 0RF Rx Instructions: As directed nicotine (polacrilex) [Nicorette] 2 mg gum 2 mg buccal Q2H Qty: 50 3RF nicotine 21-14-7 mg/24 hr patch, TD daily, sequential See Rx Instructions transdermal .COMPLEX Qty: 56 3RF Rx Instructions: apply 1-21 mg NICOTINE PATCH daily for 28 days; follow with 1-14 mg PATCH daily for 14 days, then 1-7mg PATCH daily for 14 days transdermal fluticasone propionate [Flonase Allergy Relief] 50 mcg/actuation spray,suspension 1 spray intranasal BID Qty: 16 0RF Rx Instructions: administer into each nostril phentermine 37.5 mg capsule 37.5 mg PO DAILY Rx Instructions: must administer 30 minutes before or 1-2 hours after breakfast guaifenesin [Mucinex] 600 mg tablet extended release 12hr 600 mg PO Q12H PRN (Reason: congestion) Qty: 30 3RF armodafinil [Nuvigil] 250 mg tablet 250 mg PO QAM Qty: 30 1RF Discharge Orders: Discharge ED (Routine); Ordered 03/01/22 Ordered By: Mike Hamlin Referrals: Devi Meade MD [Primary Care Provider] - Discharge Diet: Usual diet Discharge Activity: Increase activity as tolerated Patient Instructions: Viral Syndrome (ED) Activity Restrictions/Additional Instructions: Home and rest. Drink plenty of fluids. Use acetaminophen or ibuprofen for discomfort and fever. Follow-up with primary care in 3 to 5 days for recheck. Return to ER for worsening symptoms such as inability to hold fluids down, blood in vomit or stool, increased shortness of breath, or new concerns. Coding Level of Care Code ED Optical Effects Camera Operator for Shaniqua Fwd Exam Comprehensive
[2022-03-01] MEDS: acetaminophen 500 mg Tablet 1000 MG PO (22:07)
[2022-03-01 22:13] LABS: Influenza A by IFA negative (Negative); Influenza B by IFA negative (Negative)
[2022-03-01 22:14] LABS: SARS Covid-2 Antigen negative (Negative)
[2022-03-01] MEDS: sodium chloride 0.9% 500 ML 999 ML IV (22:14)
[2022-03-01 22:16] VITALS: BP 100/56; PULSE 79; RESP 16; O2SAT 90
[2022-03-01 22:30] LABS: Basophils % 0.2 %; Eosinophils % 0.2 %; Hematocrit 37.3 % (37.0-47.0); Hemoglobin 12.1 g/dL (11.5-15.3); Lymphocytes # 0.2 10^3/uL (0.8-4.8); Lymphocytes % 5.2 %; Mean Corpuscular HGB Conc 32.4 g/dL (30.0-36.0); Mean Corpuscular Hemoglobin 30.7 pg (28.0-34.0); Mean Corpuscular Volume 94.7 fl (81-99); Mean Platelet Volume 9.7 fL (7.4-10.4); Monocytes # 0.4 10^3/uL (0.2-0.9); Neutrophils # 3.56 10^3/uL (1.8-7.7); Neutrophils % 84.9 %; Nucleated Red Blood Cells % 0 %; Platelet Count 288 10^3/cmm (130-400); Red Blood Count 3.94 10^6/uL (4.1-5.3); Red Cell Distribution Width 12.3 % (12.1-15.1); White Blood Count 4.2 10^3/uL (4.0-10.0)
[2022-03-01 22:45] LABS: Alanine Aminotransferase 56 U/L (0-33); Albumin Level 3.9 g/dL (3.5-5.2); Alkaline Phosphatase 164 U/L (35-105); Aspartate Amino Transferase 48 U/L (0-32); Blood Urea Nitrogen 16 mg/dL (6-20); C Reactive Protein 31.3 mg/L (0.0-4.9); Calcium 8.7 mg/dL (8.5-10.5); Carbon Dioxide 26 mmol/L (22-29); Chloride 99 mmol/L (98-107); Globulin 2.8 g/dL (1.3-4.6); Glomerular Filtration Rate 39.2 mL/min (90-130); Glucose 107 mg/dL (65-115); Osmolality Calculated 280 mOsm/kg (285-295); Sodium 134 mmol/L (136-145); Total Bilirubin 0.2 mg/dL (0.15-1.2); Total Protein 6.7 g/dL (6.6-8.7)
[2022-03-01 23:27] VITALS: PULSE 72; RESP 16; TEMP 36.9; O2SAT 93
== END 2022-03-01 23:27 | disposition home or self-care (01) ==
PROVIDERS: Emergency Provider Nurse Practitioner Family; PCP Family Medicine
DX: B34.9 Viral infection, unspecified (principal)
CPT/HCPCS: 71045; 80053; 85025; 86140; 87426; 87804; 99284; J7040

== ENCOUNTER → 2022-06-25 13:58 | Outpatient (BNVA) | payer MEDICARE, MEDICAID, SELFPAY | PROVIDERS: PCP Family Medicine; Visit Provider Internal Medicine Pulmonary Disease | DX: G47.33 Obstructive sleep apnea (adult) (pediatric) (principal); F17.210 Nicotine dependence, cigarettes, uncomplicated; Z71.6 Tobacco abuse counseling; J44.9 Chronic obstructive pulmonary disease, unspecified; R05.9 Cough, unspecified; G35 Multiple sclerosis | CPT/HCPCS: 99214 ==

== ENCOUNTER 2022-08-08 12:40 | Outpatient (CLI) | payer MEDICARE, MEDICAID, SELFPAY ==
--- NOTE | 2022-08-08 12:51 | MM_ITS ---
WS: [id number] BILATERAL 3D TOMOSYNTHESIS DIGITAL SCREENING MAMMOGRAPHY WITH CAD CLINICAL INFORMATION: SCREENING HISTORY: Screening mammogram. No current complaints. COMPARISON: 2021 TECHNIQUE: Bilateral CC and MLO views. FINDINGS: Scattered fibroglandular densities bilaterally. No suspicious focal mass, asymmetry, calcifications, or architectural distortion. No evidence of malignancy. MM/[place] [id number] IMPRESSION: BI-RADS: 1-Negative FOLLOW UP: 1 Year Follow-up Recommend return to annual screening mammography.
== END 2022-08-08 12:41 | disposition home or self-care (01) ==
LOC: RAD 12:42
PROVIDERS: PCP Family Medicine; Visit Provider Family Medicine
DX: Z12.31 Encounter for screening mammogram for malignant neoplasm of breast (principal)
CPT/HCPCS: 77063; 77067

== ENCOUNTER → 2023-01-01 12:20 | Outpatient (BNVA) | payer MEDICARE, MEDICAID, SELFPAY | PROVIDERS: PCP Family Medicine; Visit Provider Internal Medicine Pulmonary Disease | DX: J44.9 Chronic obstructive pulmonary disease, unspecified (principal); G47.33 Obstructive sleep apnea (adult) (pediatric); F17.210 Nicotine dependence, cigarettes, uncomplicated; Z71.6 Tobacco abuse counseling; Z12.2 Encounter for screening for malignant neoplasm of respiratory organs; Z91.199 Patient's noncompliance with other medical treatment and regimen due to unspecified reason | CPT/HCPCS: 99214 ==

== ENCOUNTER 2023-03-02 10:21 | Outpatient (CLI) | payer MEDICARE, MEDICAID, SELFPAY ==
--- NOTE | 2023-03-02 11:15 | CT_ITS ---
WS: [id number] LDCT LUNG CANCER SCREENING HISTORY: Cancer Screen TECHNIQUE: Axial imaging performed from the apices to 1 cm below the costophrenic angles. Coronal and sagittal reformats are submitted with axial MIP series. All CT scans at [facility] use at least one of these dose optimization techniques: automated exposure control; mA and/or kV adjustment per patient size (includes targeted exams where dose is matched to clinical indication); or iterativ e reconstruction. DLP: 102.29 mGy.cm DIvol: Mean CTDIvol: 2.60 (mGy) COMPARISON: 02/27/2022 Diagnostic quality: Satisfactory Lungs: No pulmonary nodule, mass or endobronchial lesions. Mild emphysema. Heart: Normal size heart with no pericardial effusion.. Other findings: No adenopathy. Prior cholecystectomy. No adrenal mass. IMPRESSION: CT/CT lung screening [id number] LUNG-RADS: 1-Negative FOLLOW UP: 12 Month: Continue annual screening with LDCT OTHER FINDINGS (S MODIFIER): None.
== END 2023-03-02 10:22 | disposition home or self-care (01) ==
LOC: RAD 10:22
PROVIDERS: PCP Family Medicine; Visit Provider Internal Medicine Pulmonary Disease
DX: Z12.2 Encounter for screening for malignant neoplasm of respiratory organs (principal); F17.210 Nicotine dependence, cigarettes, uncomplicated
CPT/HCPCS: 71271

== ENCOUNTER → 2023-03-23 10:50 | Outpatient (BNVA) | payer MEDICARE, MEDICAID, SELFPAY | PROVIDERS: PCP Family Medicine; Referring Provider Family Medicine; Visit Provider Surgery | DX: Z12.11 Encounter for screening for malignant neoplasm of colon (principal) | CPT/HCPCS: 99024; 99203 ==

== ENCOUNTER 2023-05-22 07:03 | Day surgery (SDC) | payer MEDICARE, MEDICAID, SELFPAY ==
[2023-05-22 07:22] VITALS: BP 134/82; PULSE 97; RESP 18; TEMP 36.4; O2SAT 96; BMI 34.3
[2023-05-22] MEDS: sodium chloride 0.9% 1,000 ML 30 ML IV (07:26)
--- NOTE | 2023-05-22 07:31 | W.PM.OPSFHP ---
Same Day Surgery H&P Indication for Procedure/HPI DATE OF PROCEDURE: May 22, 2023 CHIEF COMPLAINT/INDICATIONFOR SURGICAL PROCEDURE: need for screening colonoscopy and distal esophageal thickening PREOP DIAGNOSIS: need for screening colonoscopy and distal esophageal thickening PLANNED PROCEDURE: Operation Date: 05/22/23 08:20 Proposed Procedures p [id number] egd [id number] colon G0121 screen colon A risk Z12.11,K21.9(Not Applicable) - Reji Farooq MD s Colonoscopy(Not Applicable) - Reji Farooq MD Medications/Allergies* Home Medications Medication Instructions Recorded Confirmed Type cholecalciferol (vitamin D3) 25 3,000 unit PO QDAY 05/05/19 05/22/23 History mcg (1,000 unit) capsule cyanocobalamin (vitamin B-12) 100 300 mcg PO QDAY 05/05/19 05/22/23 History mcg tablet (Vitamin B-12) duloxetine 60 mg capsule,delayed 60 mg PO QDAY 05/05/19 05/22/23 History release (Cymbalta) fingolimod 0.5 mg capsule (Gilenya) 0.5 mg PO QDAY 05/05/19 05/22/23 History potassium gluconate 595 mg (99 mg) 1,785 mg PO QDAY 05/05/19 05/22/23 History tablet furosemide 20 mg tablet See Rx Instructions PO DAILY PRN 06/03/19 05/22/23 History edema omeprazole 20 mg capsule,delayed 20 mg PO DAILY 06/03/19 05/22/23 History release magnesium 250 mg tablet 250 mg PO DAILY 11/29/19 05/22/23 History tizanidine 4 mg tablet 4 mg PO BEDTIME PRN Muscle Spasm 12/04/20 05/22/23 History lisinopril 10 mg tablet 30 mg PO DAILY 06/25/22 05/22/23 History pramipexole 0.25 mg tablet 0.5 mg PO BID 06/25/22 05/22/23 History fluticasone propionate 50 1 spray intranasal BID PRN Allergy 01/01/23 05/22/23 History mcg/actuation nasal Symptoms spray,suspension (Flonase Allergy Relief) Stool Softener 2 tab PO QPM 05/20/23 05/22/23 History Allergies/Adverse Reactions Allergy/AdvReac Type Severity Reaction Status Date / Time amoxicillin Allergy rash Verified 05/22/23 07:15 baclofen Allergy makes feel Verified 05/22/23 07:15 funny gabapentin Allergy throat Verified 05/22/23 07:15 swelling metronidazole Allergy throat Verified 05/22/23 07:15 swelling varenicline [From Chantix] Allergy ALGY-Rash Verified 05/22/23 07:15 Current Medications: Generic Name Dose Route Start Last Admin Trade Name Freq PRN Reason Stop Dose Admin Sodium Chloride 1,000 mls @ 30 mls/hr 05/22/23 07:15 05/22/23 07:26 Sodium Chloride 0.9% IV 30 mls/hr .Q24H OSMANY Administration Pertinent History/Comorbid Conditions* Medical History (Updated 03/09/22 @ 00:00 by MOHINI Lynch) Smoker unmotivated to quit Opioid contract exists Encounter for long-term use of opiate analgesic Chronic neck and back pain Sciatic radiculitis Displacement of intervertebral disc of lumbosacral region Cigarette smoker 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, lumbar region Surgical History (Updated 05/05/19 @ 10:25 by Adi Allred MD) History of cholecystectomy History of hysterectomy H/O arthroscopic knee surgery Family History (Updated 05/05/19 @ 09:54 by Kenya Hunter LPN) Diabetes CAD (coronary artery disease) Cancer Stroke Social History Smoking and tobacco/nicotine status: current every day tobacco/nicotine user cigarettes Packs smoked per day: 1.5 Years cigarettes smoked: 35 Quit status (tobacco/nicotine): considering quitting Second hand smoke exposure: No Alcohol intake: former Substance/Drug Use: never Lives independently: Yes Household members: significant other Marital status: Life Partner Current occupational status: disabled Pets and animals: Yes Do you think of yourself as: Straight/Heterosexual Current gender identity: Female Pertinent Exam Findings alert, oriented x 3, clear to auscultation bilaterally and regular rate & rhythm Recommendations Surgery/Procedure today Coding Level of Care Code Acute Code for Shaniqua Palumbo
--- NOTE | 2023-05-22 08:03 | ANES.PREANE2 ---
Pre-Anesthetic Assessment Height/Weight: Height 1.63 m Weight 90.718 kg Temp Pulse Resp BP Pulse Ox O2 Del Method 97.5 F L 97 18 134/82 96 Room Air 05/22/23 07:22 05/22/23 07:22 05/22/23 07:22 05/22/23 07:22 05/22/23 07:22 05/22/23 07:22 Preop Diagnosis: need for screening colonoscopy and distal esophageal thickening Operation Date: 05/22/23 08:20 Proposed Procedures p [id number] egd [id number] colon G0121 screen colon A risk Z12.11,K21.9(Not Applicable) - Reji Farooq MD s Colonoscopy(Not Applicable) - Reji Farooq MD Familial anesthetic complications: none Was Beta Asmita taken within 24 hours: N/A Last intake: Intake Last Liquid Date 05/21/23 Last Liquid Time 20:00 Last Solid Date 05/20/23 Last Solid Time 20:30 Social Tobacco 1 pack(s) per day 35 pack years Exam alert, oriented x 3, clear to auscultation bilaterally and regular rate & rhythm Airway Submandibular: within normal limits Cervical ROM: within normal limits Mallampati: Class II Dentition: full Pulmonary Chronic Obstructive Pulmonary Disease and Sleep Apnea (CPAP USE SOMETIMES ) CV/HEM Hypertension Previous stress test on chart. Patient states she gained 14 lbs in February over the course of 1 wk. Patient reported swelling in BLE and SOB currently on diuretic, she states that she was told it was not CHF, cardiac workup did not indicate CHF. None reported Hepatic None reported GI Gastroesophageal Reflux Disease esophageal thickening on echo. Metabolic Relapsing Remitting Multiple Sclerosis no current symptoms. Musc/skel Weakness (only during relapse no current issues.) Neuropsych None reported Anesthetic Plan ASA status: 3 Anesthesia: General (secondary) and MAC (primary) Medications/Allergies Home Medications Medication Instructions Recorded Confirmed Last Taken Type cholecalciferol (vitamin D3) 25 3,000 unit PO QDAY 05/05/19 05/22/23 05/21/23 History mcg (1,000 unit) capsule cyanocobalamin (vitamin B-12) 100 300 mcg PO QDAY 05/05/19 05/22/23 05/21/23 History mcg tablet (Vitamin B-12) duloxetine 60 mg capsule,delayed 60 mg PO QDAY 0105/22/23 05/21/23 History release (Cymbalta) fingolimod 0.5 mg capsule (Gilenya) 0.5 mg PO QDAY 05/05/19 05/22/23 05/21/23 History potassium gluconate 595 mg (99 mg) 1,785 mg PO QDAY 05/05/19 05/22/23 05/21/23 History tablet furosemide 20 mg tablet See Rx Instructions PO DAILY PRN 06/03/19 05/22/23 05/21/23 History edema omeprazole 20 mg capsule,delayed 20 mg PO DAILY 06/03/19 05/22/23 05/21/23 History release magnesium 250 mg tablet 250 mg PO DAILY 11/29/19 05/22/23 05/21/23 History albuterol sulfate 90 mcg/actuation 2 puff inhalation Q6H PRN 09/03/20 05/22/23 Unknown Rx aerosol inhaler shortness of breath or wheezing #8.5 grams Thumb Spica Splint #1 ea 09/05/20 03/23/23 Unknown Rx tizanidine 4 mg tablet 4 mg PO BEDTIME PRN Muscle Spasm 12/04/20 05/22/23 05/21/23 History hydrocodone 10 mg-acetaminophen 1 tab PO QID PRN pain 30 days #120 04/26/21 05/22/23 05/21/23 Rx 325 mg tablet tabs tramadol 50 mg tablet 50 mg PO QID PRN pain 30 days #120 04/26/21 05/22/23 05/21/23 Rx tabs lisinopril 10 mg tablet 30 mg PO DAILY 06/25/22 05/22/23 05/21/23 History pramipexole 0.25 mg tablet 0.5 mg PO BID 06/25/22 05/22/23 05/21/23 History fluticasone propionate 50 1 spray intranasal BID PRN Allergy 01/01/23 05/22/23 Unknown History mcg/actuation nasal Symptoms spray,suspension (Flonase Allergy Relief) armodafinil 250 mg tablet (Nuvigil) 250 mg PO QAM #30 tabs 04/02/23 05/22/23 05/21/23 Rx Stool Softener 2 tab PO QPM 05/20/23 05/22/23 05/21/23 History Allergies Allergy/AdvReac Type Severity Reaction Status Date / Time amoxicillin Allergy rash Verified 05/22/23 07:15 baclofen Allergy makes feel Verified 05/22/23 07:15 funny gabapentin Allergy throat Verified 05/22/23 07:15 swelling metronidazole Allergy throat Verified 05/22/23 07:15 swelling varenicline [From Chantix] Allergy ALGY-Rash Verified 05/22/23 07:15 Current Medications Generic Name Dose Route Start Last Admin Trade Name Kamran PRN Reason Stop Dose Admin Sodium Chloride 1,000 mls @ 30 mls/hr 05/22/23 07:15 05/22/23 07:26 Sodium Chloride 0.9% IV 30 mls/hr .Q24H OSMANY Administration PFSH Anesthesia Medical History Smoker unmotivated to quit Opioid contract exists Encounter for long-term use of opiate analgesic Chronic neck and back pain Sciatic radiculitis Displacement of intervertebral disc of lumbosacral region Cigarette smoker 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, lumbar region Surgical History History of cholecystectomy History of hysterectomy H/O arthroscopic knee surgery Family History Other CAD (coronary artery disease) Cancer Diabetes Stroke Social History Smoking and tobacco/nicotine status: current every day tobacco/nicotine user cigarettes Packs smoked per day: 1.5 Years cigarettes smoked: 35 Quit status (tobacco/nicotine): considering quitting Second hand smoke exposure: No Alcohol intake: former Substance/Drug Use: never Lives independently: Yes Household members: significant other Marital status: Life Partner Current occupational status: disabled Pets and animals: Yes Do you think of yourself as: Straight/Heterosexual Current gender identity: Female Data Anesthesia Cardiac Studies: Sestamibi Stress Test (Cardiology) 06/14/20
[2023-05-22 08:44] LABS: Alanine Aminotransferase 16 U/L (0-33); Albumin Level 4.2 g/dL (3.5-5.2); Alkaline Phosphatase 205 U/L (35-105); Anion Gap 15.7 (5-19); Aspartate Amino Transferase 19 U/L (0-32); Blood Urea Nitrogen 25 mg/dL (6-20); Calcium 9.8 mg/dL (8.5-10.5); Carbon Dioxide 26 mmol/L (22-29); Chloride 102 mmol/L (98-107); Globulin 3.1 g/dL (1.3-4.6); Glomerular Filtration Rate 46.6 mL/min (90-130); Glucose 106 mg/dL (65-115); Osmolality Calculated 295 mOsm/kg (285-295); Potassium 3.7 mmol/L (3.5-5.1); Sodium 140 mmol/L (136-145); Total Bilirubin 0.4 mg/dL (0.15-1.2); Total Protein 7.3 g/dL (6.6-8.7)
[2023-05-22 09:42] VITALS: BP 89/55; PULSE 70; RESP 14; TEMP 36.1; O2SAT 96
[2023-05-22 09:48] VITALS: BP 93/60
[2023-05-22 09:50] VITALS: BP 100/67
[2023-05-22 10:00] VITALS: BP 120/71; PULSE 89; RESP 18; O2SAT 100
== END 2023-05-22 10:26 | disposition home or self-care (01) ==
PROVIDERS: Anesthesiology; PCP Family Medicine; Visit Provider Surgery
PROC: 0DJ08ZZ Inspection of Upper Intestinal Tract, Via Natural or Artificial Opening Endoscopic (ICD-10-PCS; CPT 43235; principal; 2023-05-22 08:20)
PROC: 0DJD8ZZ Inspection of Lower Intestinal Tract, Via Natural or Artificial Opening Endoscopic (ICD-10-PCS; CPT 45378; 2023-05-22 08:20)
DX: Z12.11 Encounter for screening for malignant neoplasm of colon (principal); K21.9 Gastro-esophageal reflux disease without esophagitis; K44.9 Diaphragmatic hernia without obstruction or gangrene; K29.50 Unspecified chronic gastritis without bleeding; F17.210 Nicotine dependence, cigarettes, uncomplicated; J44.9 Chronic obstructive pulmonary disease, unspecified; G47.30 Sleep apnea, unspecified; I10 Essential (primary) hypertension; G35 Multiple sclerosis; Z79.891 Long term (current) use of opiate analgesic
CPT/HCPCS: 43239; 80053; 88305; G0121; J2704; J7030

== ENCOUNTER → 2023-06-09 07:51 | Outpatient (BNVA) | payer MEDICARE, SELFPAY | PROVIDERS: PCP Family Medicine; Visit Provider Surgery | DX: Z09 Encounter for follow-up examination after completed treatment for conditions other than malignant neoplasm (principal) | CPT/HCPCS: 99213 ==

== ENCOUNTER 2023-10-16 10:44 | Outpatient (CLI) | payer MEDICARE, MEDICAID, SELFPAY ==
--- NOTE | 2023-10-16 10:50 | MM_ITS ---
WS: [id number] BILATERAL SCREENING DIGITAL TOMOSYNTHESIS MAMMOGRAM WITH CAD HISTORY: SCREENING COMPARISON: 08/08/2022, 07/30/2021 Bilateral CC and MLO views with tomosynthesis and synthetic mammography submitted. Computer aided det ection analyzed. Breast composition: There are scattered areas of fibroglandular density. No suspicious masses, microc alcifications or architectural distortion. MM/[place] [id number] IMPRESSION: BI-RADS: 1-Negative FOLLOW UP: 1 Year Follow-up
== END 2023-10-16 10:45 | disposition home or self-care (01) ==
LOC: RAD 10:44
PROVIDERS: PCP Family Medicine; Visit Provider Family Medicine
DX: Z12.31 Encounter for screening mammogram for malignant neoplasm of breast (principal)
CPT/HCPCS: 77063; 77067

== ENCOUNTER → 2024-02-01 08:40 | Outpatient (BNVA) | payer MEDICARE, MEDICAID, SELFPAY | PROVIDERS: PCP Family Medicine; Referring Provider Family Medicine; Visit Provider Nurse Practitioner Family | DX: D48.5 Neoplasm of uncertain behavior of skin (principal); L57.0 Actinic keratosis; L82.0 Inflamed seborrheic keratosis; D22.5 Melanocytic nevi of trunk; L81.4 Other melanin hyperpigmentation; L82.1 Other seborrheic keratosis | CPT/HCPCS: 11102; 17000; 17110; 99203 ==

== ENCOUNTER 2024-03-07 08:53 | Outpatient (CLI) | payer MEDICARE, MEDICAID, SELFPAY ==
--- NOTE | 2024-03-07 08:56 | CT_ITS ---
WS: [id number] LDCT LUNG CANCER SCREENING HISTORY: HX OF TOBACCO USE TECHNIQUE: Axial imaging performed from the apices to 1 cm below the costophrenic angles. Coronal and sagittal reformats are submitted with axial MIP series. All CT scans at [facility] use at least one of these dose optimization techniques: automated exposure control; mA and/or kV adjustment per patient size (includes targeted exams where dose is matched to clinical indication); or iterativ e reconstruction. DLP: 93.89 mGy.cm DIvol: Mean CTDIvol: 2.40 (mGy) COMPARISON: 03/02/2023 Diagnostic quality: Satisfactory Lungs: No mass or pulmonary nodule. No pneumonia, endobronchial lesions or groundglass attenuation. Heart: Normal size heart with no pericardial effusion.. Other findings: No adenopathy. Normal aorta. Prior cholecystectomy. No adrenal mass. Mild thoracic sp ondylosis. CT/CT lung screening [id number] IMPRESSION: LUNG-RADS: 1-Negative FOLLOW UP: 12 Month: Continue annual screening with LDCT OTHER FINDINGS (S MODIFIER): None.
== END 2024-03-07 08:54 | disposition home or self-care (01) ==
LOC: RAD 08:53
PROVIDERS: PCP Family Medicine; Visit Provider Family Medicine
DX: Z12.2 Encounter for screening for malignant neoplasm of respiratory organs (principal); Z87.891 Personal history of nicotine dependence; Z90.49 Acquired absence of other specified parts of digestive tract
CPT/HCPCS: 71271

== ENCOUNTER → 2024-03-30 11:05 | Outpatient (BNVA) | payer MEDICARE, MEDICAID, SELFPAY | PROVIDERS: PCP Family Medicine; Visit Provider Obstetrics & Gynecology | DX: R89.6 Abnormal cytological findings in specimens from other organs, systems and tissues (principal) | CPT/HCPCS: 76830 ==

== ENCOUNTER → 2024-05-05 09:45 | Outpatient (BNVA) | payer MEDICARE, SELFPAY | PROVIDERS: PCP Family Medicine; Visit Provider Physician Assistant | DX: M65.4 Radial styloid tenosynovitis [de Quervain] (principal); M79.645 Pain in left finger(s); M25.532 Pain in left wrist | CPT/HCPCS: 20600; 73130; 99203; J3301; J3490 ==

== ENCOUNTER → 2024-07-27 13:52 | Outpatient (BNVA) | payer MEDICARE, MEDICAID, SELFPAY | PROVIDERS: PCP Family Medicine; Visit Provider Nurse Practitioner Family | DX: D22.5 Melanocytic nevi of trunk (principal); B00.1 Herpesviral vesicular dermatitis; L81.4 Other melanin hyperpigmentation; L82.1 Other seborrheic keratosis; L57.0 Actinic keratosis | CPT/HCPCS: 17000; 99213 ==

== ENCOUNTER → 2024-08-02 08:51 | Outpatient (BNVA) | payer MEDICARE, SELFPAY | PROVIDERS: PCP Family Medicine; Visit Provider Physician Assistant | DX: M25.532 Pain in left wrist (principal); M65.4 Radial styloid tenosynovitis [de Quervain] | CPT/HCPCS: 99213 ==

== ENCOUNTER 2024-10-14 11:55 | Outpatient (CLI) | payer MEDICARE, MEDICAID, SELFPAY ==
--- NOTE | 2024-10-14 12:05 | MR_ITS ---
WS: [id number] MRI LUMBAR SPINE NONCONTRAST TECHNIQUE: Sagittal T1, T2 and STIR imaging. Axial T1 and T2 imaging. CLINICAL INFORMATION: LOW BACK PAIN, LUMBOSACRAL RADICULOPATHY COMPARISON: MRI 2019 FINDINGS: Mild lumbar curve. No acute compression. No high-grade central canal stenosis. Disc desiccation at L5-S1 has progressed compared to previous. L1-L2: Mild facet arthropathy. L2-L3: Mild facet arthropathy. Spinal canal and foramen are patent. L3-L4: Mild annular bulging. Narrowing of the LEFT subarticular recess. Moderate facet arthropathy. Mild LEFT foraminal narrowing. L4-L5: Mild disc bulging with narrowing of the LEFT subarticular recess. Moderate facet arthropathy. Mild LEFT foraminal narrowing. L5-S1: Mild disc bulging with a tiny central protrusion. Encroachment on the traversing S1 nerve roots. Moderate facet arthropathy. Spinal canal and foramen are patent. Visualized pelvic bony structures: Normal. Paravertebral soft tissues: Normal. MR/MR lumbar spine wo con* [id number] IMPRESSION: 1. Disc space narrowing L5-S1 is progressed compared to previous. 2. Mild annular bulging L4-5 with narrowing of the LEFT subarticular recess an d slight impingement of traversing LEFT L5 nerve root. Mild LEFT L4-5 foraminal narrowing. Findings at this level appear slightly progressed. 3. Disc bulge at L5-S1 with slight contact of the traversing S1 nerve roots. 4. Tiny LEFT foraminal protrusion L3-4 with mild LEFT foraminal narrowing. Sli ght narrowing of the LEFT subarticular recess at this level. 5. Moderate facet arthropathy L4-L5 and L5-S1.
== END 2024-10-14 11:56 | disposition home or self-care (01) ==
PROVIDERS: PCP Family Medicine; Visit Provider Nurse Practitioner Family
DX: M54.17 Radiculopathy, lumbosacral region (principal); M51.360 Other intervertebral disc degeneration, lumbar region with discogenic back pain only
CPT/HCPCS: 72148

== ENCOUNTER → 2024-11-15 14:40 | Outpatient (BNVA) | payer MEDICARE, MEDICAID, SELFPAY | PROVIDERS: PCP Nurse Practitioner Family; Visit Provider Physician Assistant | DX: M65.4 Radial styloid tenosynovitis [de Quervain] (principal); M25.532 Pain in left wrist | CPT/HCPCS: 99214 ==

== ENCOUNTER → 2024-12-30 05:41 | Day surgery (SDC) | payer MEDICARE, MEDICAID, SELFPAY ==
[2024-12-30] VITALS (7 sets, daily range): BP systolic 128–172; BP diastolic 73–99; PULSE 67–78; RESP 12–18; TEMP 36.1–36.4; O2SAT 95–98; BMI 37.0
[2024-12-30] MEDS: acetaminophen 1,000 MG/100 ML PIGGYBACK 400 MG IV (06:12)
--- NOTE | 2024-12-30 06:50 | ANES.PREANE2 ---
Pre-Anesthetic Assessment Height/Weight: Height 1.63 m Weight 97.976 kg Temp Pulse Resp BP Pulse Ox O2 Del Method 97.0 F L 76 18 137/94 98 Room Air 12/30/24 06:02 12/30/24 06:02 12/30/24 06:02 12/30/24 06:02 12/30/24 06:02 12/30/24 06:02 Operation Date: 12/30/24 07:00 Proposed Procedures p Tenotomy Hand/Wrist De Quervain's Release(Left) - Brennan Musselshell, DO Familial anesthetic complications: None Was Beta Asmita taken within 24 hours: N/A Was Clonidine taken within 24 hours: N/A Last intake: Intake Last Liquid Date 12/29/24 Last Liquid Time 21:00 Last Solid Date 12/29/24 Last Solid Time 21:00 Social No alcohol and No tobacco Exam alert, oriented x 3, clear to auscultation bilaterally and regular rate & rhythm Airway Mallampati: Class II Dentition: full Pulmonary Chronic Obstructive Pulmonary Disease CV/HEM Hypertension GI Gastroesophageal Reflux Disease Anesthetic Plan ASA status: 3 Anesthesia: MAC Risk of > 500 ml blood loss (7ml/kg in children): No Medications/Allergies Home Medications ?Medication ?Instructions ?Recorded ?Confirmed ?Last Taken ?Type cholecalciferol (vitamin D3) 25 3,000 unit PO QDAY 05/05/19 12/28/24 12/29/24 History mcg (1,000 unit) capsule cyanocobalamin (vitamin B-12) 100 300 mcg PO QDAY 05/05/19 12/28/24 12/29/24 History mcg tablet (Vitamin B-12) duloxetine 60 mg capsule,delayed 60 mg PO QDAY 05/05/19 12/28/24 12/29/24 History release (Cymbalta) magnesium 250 mg tablet 250 mg PO DAILY 11/29/19 12/28/24 12/29/24 History albuterol sulfate 90 mcg/actuation 2 puff inhalation Q6H PRN 09/03/20 12/28/24 Unknown Rx aerosol inhaler shortness of breath or wheezing #8.5 grams Thumb Spica Splint #1 ea 09/05/20 11/15/24 Unknown Rx tizanidine 4 mg tablet 4 mg PO BEDTIME PRN Muscle Spasm 12/04/20 12/28/2425 History tramadol 50 mg tablet 50 mg PO QID PRN pain 30 days #120 04/26/21 12/28/24 12/27/24 Rx tabs pramipexole 0.25 mg tablet 0.5 mg PO BID 06/25/22 12/28/24 12/29/24 History Stool Softener 2 tab PO QPM 05/20/23 12/28/24 12/29/24 History armodafinil 250 mg tablet (Nuvigil) 250 mg PO QAM #30 tabs 08/20/23 12/28/24 12/29/24 Rx omeprazole 20 mg capsule,delayed 20 mg PO DAILY 03/23/24 12/28/24 12/29/24 History release amlodipine 5 mg tablet 5 mg PO DAILY 08/02/24 12/28/24 12/29/24 History potassium chloride 10 mEq 10 meq PO DAILY 08/02/24 12/28/24 12/29/24 History tablet,extended release(part/cryst) rosuvastatin 5 mg tablet 5 mg PO DAILY 08/02/24 12/28/24 12/29/24 History hydrocodone 7.5 mg-acetaminophen 1 tab PO PRN PRN Pain 12/28/24 12/28/24 12/29/24 History 325 mg tablet teriflunomide 14 mg tablet 14 mg PO QPM 12/28/24 12/28/24 12/29/24 History (Aubagio) Allergies Allergy/AdvReac Type Severity Reaction Status Date / Time amoxicillin Allergy rash Verified 12/30/24 05:52 baclofen Allergy makes feel Verified 12/30/24 05:52 funny empagliflozin (From Allergy ALGY-Fever Verified 12/30/24 05:55 Jardiance) gabapentin Allergy throat Verified 12/30/24 05:52 swelling metronidazole Allergy throat Verified 12/30/24 05:52 swelling varenicline (From Chantix) Allergy ALGY-Rash Verified 12/30/24 05:52 Current Medications Generic Name Dose Route Start Last Admin Trade Name Freq PRN Reason Stop Dose Admin Sodium Chloride 1,000 mls @ 30 mls/hr 12/30/24 06:00 12/30/24 06:14 Sodium Chloride 0.9% IV 12/31/24 05:59 30 mls/hr .Q24H OSMANY Administration PFSH Anesthesia Medical History Smoker unmotivated to quit Opioid contract exists Encounter for long-term use of opiate analgesic Chronic neck and back pain Sciatic radiculitis Displacement of intervertebral disc of lumbosacral region Cigarette smoker 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, lumbar region Surgical History History of cholecystectomy History of hysterectomy H/O arthroscopic knee surgery Family History Other CAD (coronary artery disease) Cancer Diabetes Stroke Social History Smoking and tobacco/nicotine status: former use of tobacco/nicotine Quit status (tobacco/nicotine): considering quitting Second hand smoke exposure: No Alcohol intake: former Substance/Drug Use: never Lives independently: Yes Household members: significant other Marital status: Life Partner Current occupational status: disabled Pets and animals: Yes Do you think of yourself as: Straight/Heterosexual Current gender identity: Female Data Anesthesia Cardiac Studies: Sestamibi Stress Test (Cardiology) 06/14/20
--- NOTE | 2024-12-30 07:00 | W.PM.OPSFHP ---
Same Day Surgery H&P Indication for Procedure/HPI DATE OF PROCEDURE: December 30, 2024 CHIEF COMPLAINT/INDICATIONFOR SURGICAL PROCEDURE: Left wrist de Quervain's disease PREOP DIAGNOSIS: Left wrist de Quervain's disease PLANNED PROCEDURE: Operation Date: 12/30/24 07:00 Proposed Procedures p Tenotomy Hand/Wrist De Quervain's Release(Left) - Brennan Cardona, DO Medications/Allergies* Home Medications ?Medication ?Instructions ?Recorded ?Confirmed ?Type cholecalciferol (vitamin D3) 25 3,000 unit PO QDAY 05/05/19 12/28/24 History mcg (1,000 unit) capsule cyanocobalamin (vitamin B-12) 100 300 mcg PO QDAY 05/05/19 12/28/24 History mcg tablet (Vitamin B-12) duloxetine 60 mg capsule,delayed 60 mg PO QDAY 05/05/19 12/28/24 History release (Cymbalta) magnesium 250 mg tablet 250 mg PO DAILY 11/29/19 12/28/24 History tizanidine 4 mg tablet 4 mg PO BEDTIME PRN Muscle Spasm 12/04/20 12/28/24 History pramipexole 0.25 mg tablet 0.5 mg PO BID 06/25/22 12/28/24 History Stool Softener 2 tab PO QPM 05/20/23 12/28/24 History omeprazole 20 mg capsule,delayed 20 mg PO DAILY 03/23/24 12/28/24 History release amlodipine 5 mg tablet 5 mg PO DAILY 08/02/24 12/28/24 History potassium chloride 10 mEq 10 meq PO DAILY 08/02/24 12/28/24 History tablet,extended release(part/cryst) rosuvastatin 5 mg tablet 5 mg PO DAILY 08/02/24 12/28/24 History hydrocodone 7.5 mg-acetaminophen 1 tab PO PRN PRN Pain 12/28/24 12/28/24 History 325 mg tablet teriflunomide 14 mg tablet 14 mg PO QPM 12/28/24 12/28/24 History (Aubagio) Allergies/Adverse Reactions Allergy/AdvReac Type Severity Reaction Status Date / Time amoxicillin Allergy rash Verified 12/30/24 05:52 baclofen Allergy makes feel Verified 12/30/24 05:52 funny empagliflozin (From Allergy ALGY-Fever Verified 12/30/24 05:55 Jardiance) gabapentin Allergy throat Verified 12/30/24 05:52 swelling metronidazole Allergy throat Verified 12/30/24 05:52 swelling varenicline (From Chantix) Allergy ALGY-Rash Verified 12/30/24 05:52 Current Medications: Generic Name Dose Route Start Last Admin Trade Name Freq PRN Reason Stop Dose Admin Sodium Chloride 1,000 mls @ 30 mls/hr 12/30/24 06:00 12/30/24 06:14 Sodium Chloride 0.9% IV 12/31/24 05:59 30 mls/hr .Q24H OSMANY Administration Pertinent History/Comorbid Conditions* Medical History (Updated 05/05/24 @ 10:27 by VÍCTOR Terrazas) Smoker unmotivated to quit Opioid contract exists Encounter for long-term use of opiate analgesic Chronic neck and back pain Sciatic radiculitis Displacement of intervertebral disc of lumbosacral region Cigarette smoker 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, lumbar region Surgical History (Updated 05/05/19 @ 10:25 by Adi Allred MD) History of cholecystectomy History of hysterectomy H/O arthroscopic knee surgery Family History (Updated 05/05/19 @ 09:54 by Kenya Hunter LPN) Diabetes CAD (coronary artery disease) Cancer Stroke Social History Smoking and tobacco/nicotine status: former use of tobacco/nicotine Quit status (tobacco/nicotine): considering quitting Second hand smoke exposure: No Alcohol intake: former Substance/Drug Use: never Lives independently: Yes Household members: significant other Marital status: Life Partner Current occupational status: disabled Pets and animals: Yes Do you think of yourself as: Straight/Heterosexual Current gender identity: Female Pertinent Exam Findings alert, oriented x 3, operative site marked and procedure specific exam findings Please refer to detailed orthopedic examination on 11/15/2024 listed below: Left Hand exam-negative Tinel's and negative Phalen's test. No thenar atrophy and no thenar muscle weakness. Full range of motion in fingers and wrist and fingers are warm and well-perfused with normal cap refill under 2 seconds. Radial pulse 2+, no intrinsic muscle weakness noted. Pain with some wrist range of motion. Radial styloid tenderness to palpation. Positive Janes test. Recommendations Risks and benefits of procedure reviewed and Patient/family agree to proceed Surgery/Procedure today Other Plans: Plan to proceed to the OR today for left wrist de Quervain's release patient understands the ins and outs procedure risk benefits complication alternatives surgical nonsurgical treatment options. Questions answered at this time. Ready to proceed with surgical intervention today after understanding the risks. She did state she noticed a small volar cyst that just popped up today. At this point in time this has not been previously seen or addressed and just came up since the last visit and has not been here for years this is very small in nature and it is went away on its own in the past we talked about her options which are ultimately at this point in time he was already planned and addressed with patient's insurance for the de Quervain's we will address her left wrist de Quervain's disease and see if this has any correlation to the cyst and we can follow-up with this in an outpatient setting after the left wrist de Quervain's release. Patient understands and agrees with current plan. All questions answered at this time. Coding Level of Care Code Acute Code for Shaniqua Palumbo
[2024-12-30] MEDS: ROPivacaine 0.5% SDV 30 mL 150 MG INJECTION (07:34)
--- NOTE | 2024-12-30 07:47 | P.BOP_ITS ---
Date of Procedure: 12/30/2024 Surgeon: Brennan Cardona DO [employer] Sticker(s): None Procedure(s) performed: Left wrist de Quervain's release Findings of the procedure(s): Underwent procedure as planned without issues or complications taken recovery stable condition Estimated blood loss: 2 mL Specimen(s) removed: None Post-operative diagnosis: Left wrist de Quervain's disease
--- NOTE | 2024-12-30 07:50 | PM.OP ---
Operative Report Date of procedure: December 30, 2024 Surgeon: Brennan Cardona DO Procedure: Preop Diagnosis: Left wrist de Quervain's disease Post-op diagnosis: Same Procedure done: 1. Left wrist de Quervain's release Surgeon: Brennan Cardona DO Anesthesia: MAC (Local) Estimated blood loss: [2]mL Tourniquet time [12]minutes IV fluids: 500mL Complications: None Findings: See operative report narrative Condition: stable Disposition: same day Brief History: Patient is a pleasant [ 59 ]year-old [ F ] with left wrist de Quervain's disease patient has been worked up in the outpatient setting findings and physical examination consistent with this. Patient's failed conservative treatment. We detailed out patient's risk benefits complication alternatives with surgical and nonsurgical treatment options. Through shared decision making, patient agrees to proceed with surgical intervention of the left wrist de Quervain's release . Patient understands and agrees with current plan. All questions answered. Patient elects to proceed with surgical intervention consent reviewed and signed with patient in preoperative holding area. Procedure: Patient seen and evaluated in the preoperative holding area. Consent was reviewed and signed with patient. Correct extremity was marked. Patient was seen evaluated by the anesthesia department once cleared for surgery was brought back to the operative suite. Patient was kept on [facility] in supine position all bony prominences were well-padded patient properly secured to the bed. Left upper extremity was then placed onto an armboard. A nonsterile tourniquet was applied to the left upper arm. Patient underwent anesthesia per the anesthesia department. Patient's left upper extremity was then prepped and draped in standard orthopedic fashion. Final timeout performed. Patient received appropriate preoperative antibiotics. Under sterile aseptic technique patient received local anesthesia over the preplanned de Quervain's left wrist incision site. Esmarch was used to exsanguinate the left upper extremity and tourniquet was insufflated to 250 mmHg. Next I then proceeded with the left wrist de Quervain's release.? I marked out the first dorsal compartment a small longitudinal incision was made directly over this.? Sharp scalpel incision was made through skin only switch to Littler dissection scissors and protected the superficial branch of the radial nerve as well as neurovascular structures.? I then had direct visualization of the first dorsal compartment sharp scalpel incision I used to then simply incise the first dorsal compartment I switched dissection scissors to release this both proximally and distally to its entirety the EPB tendon did have a subsheath which was subsequently released as well.? I then subsequently used a rag nail and mobilized each tendon that verify no areas of entrapment and this completed the left wrist de Quervain's release. Wound was then thoroughly irrigated. Tourniquet deflated. Hemostasis satisfactory with bipolar electrocautery. 3-0 Vicryl suture for subcutaneous tissue closure, I then closed the incision with interrupted nylon stitches. Xeroform 4 x 4's and a bulky soft dressing was applied to the left upper extremity. Patient was then awakened from anesthesia and taken to PACU in stable condition. Patient tolerated procedure without complications. Disposition: Patient taken to PACU in stable condition recovering well. Dressing clean dry and intact. Patient will receive appropriate discharge instructions as well as pain medication postoperatively. Patient to follow-up with Ortho in the office in 2 weeks. They understand they may be weightbearing as tolerated to the left hand. Patient should keep incision clean dry and intact. Patient understands if any questions or concerns may contact the office.
--- NOTE | 2024-12-30 10:43 | ANE.PACU2 ---
Inpatient post-anesthesia follow up: Airway intact: Yes Vital signs: Temperature 97.5 F Pulse Rate 78 Respiratory Rate 18 Blood Pressure 172/99 Pulse Oximetry 98 Oxygen Delivery Me thod Room Air Oxygen Flow Rate Fraction of Inspir ed Oxygen Hydration adequate: Yes Nausea and vomiting: No Pain level: 1 Mental status: Baseline
== END | disposition home or self-care (01) ==
PROVIDERS: PCP Nurse Practitioner Family; Visit Provider Student in an Organized Health Care Education/Training Program
PROC: (CPT 25000; principal; 2024-12-30 07:00)
DX: M65.4 Radial styloid tenosynovitis [de Quervain] (principal); J44.9 Chronic obstructive pulmonary disease, unspecified; I10 Essential (primary) hypertension; K21.9 Gastro-esophageal reflux disease without esophagitis; Z79.891 Long term (current) use of opiate analgesic; F17.210 Nicotine dependence, cigarettes, uncomplicated
CPT/HCPCS: 25000; J0131; J1885; J2704; J2795; J3010; J3490; J7030; J9999

== ENCOUNTER → 2025-01-13 07:44 | Outpatient (BNVA) | payer MEDICARE, MEDICAID, SELFPAY | PROVIDERS: Family Provider Family Medicine; PCP Family Medicine; Visit Provider Physician Assistant | DX: Z98.890 Other specified postprocedural states (principal) | CPT/HCPCS: 99024 ==

== ENCOUNTER → 2025-01-24 14:22 | Outpatient (BNVA) | payer MEDICARE, MEDICAID, SELFPAY | PROVIDERS: Family Provider Family Medicine; PCP Family Medicine; Visit Provider Orthopaedic Surgery | DX: M48.062 Spinal stenosis, lumbar region with neurogenic claudication (principal) | CPT/HCPCS: 72110; 99203 ==

== ENCOUNTER 2025-03-09 11:23 | Outpatient (CLI) | payer MEDICARE, MEDICAID, SELFPAY | END 2025-03-09 11:24 | disposition home or self-care (01) | LOC: LAB 03-10 07:33 | PROVIDERS: PCP Family Medicine; Visit Provider Family Medicine | DX: R31.9 Hematuria, unspecified (principal) | CPT/HCPCS: 81000; 87086 ==

== ENCOUNTER 2025-03-09 11:38 | Outpatient (CLI) | payer MEDICARE, MEDICAID, SELFPAY ==
--- NOTE | 2025-03-09 12:15 | CT_ITS ---
WS: [id number] LDCT LUNG CANCER SCREENING TECHNIQUE: Noncontrast CT of the chest with coronal and sagittal reformatted images. CLINICAL INFORMATION: ex smoker; quit 2024; 39pk yr COMPARISON: 2023 DLP: 72.61 mGy.cm DIvol: Mean CTDIvol: 1.80 (mGy) All CT scans at [facility] use at least one of these dose optimization techniques: automated exposure control; mA and/or kV adjustment per patient size (includes targeted exams where dose is matched to clinical indication); or iterative reconstruction. FINDINGS: Mild hyperinflation. No suspicious pulmonary parenchymal abnormalities. Prior cholecystectomy. Normal caliber thoracic aorta. Normal caliber descending thoracic aorta. Adrenal glands are normal. Cholecystectomy clips. Prior gastric bypass. Mild thoracic curve. Mild thoracic kyphosis. Hypertrophic changes mid thoracic spine. CT/CT lung screening [id number] IMPRESSION: LUNG-RADS: 2-Benign Appearance or Behavior FOLLOW UP: 12 Month: Continue annual screening with LDCT
== END 2025-03-09 11:39 | disposition home or self-care (01) ==
LOC: RAD 11:39
PROVIDERS: PCP Family Medicine; Visit Provider Family Medicine
DX: Z12.2 Encounter for screening for malignant neoplasm of respiratory organs (principal); F17.211 Nicotine dependence, cigarettes, in remission; Z90.49 Acquired absence of other specified parts of digestive tract; Z96.89 Presence of other specified functional implants; M40.204 Unspecified kyphosis, thoracic region; M51.34 Other intervertebral disc degeneration, thoracic region
CPT/HCPCS: 71271

== ENCOUNTER 2025-03-20 08:49 | Outpatient (CLI) | payer MEDICARE, MEDICAID, SELFPAY ==
--- NOTE | 2025-03-20 09:20 | MM_ITS ---
WS: [id number] BILATERAL SCREENING DIGITAL TOMOSYNTHESIS MAMMOGRAM WITH CAD HISTORY: screening COMPARISON: 10/16/2023, 08/08/2022 and 07/30/2021 Bilateral CC and MLO views with tomosynthesis and synthetic mammography submitted. Computer aided detection analyzed. Breast composition: There are scattered areas of fibroglandular density. No suspicious masses, microcalcifications or architectural distortion. MM/MM scr BI tomosynthesis [id number] IMPRESSION: BI-RADS: 1 - Negative. FOLLOW UP: 1 Year Follow-up
== END 2025-03-20 08:50 | disposition home or self-care (01) ==
LOC: RAD 08:49
PROVIDERS: PCP Family Medicine; Visit Provider Family Medicine
DX: Z12.31 Encounter for screening mammogram for malignant neoplasm of breast (principal); R92.323 Mammographic fibroglandular density, bilateral breasts
CPT/HCPCS: 77063; 77067

== ENCOUNTER → 2025-03-30 09:45 | Outpatient (BNVA) | payer MEDICARE, MEDICAID, SELFPAY | PROVIDERS: PCP Family Medicine; Visit Provider Family Medicine | DX: R87.629 Unspecified abnormal cytological findings in specimens from vagina (principal); I10 Essential (primary) hypertension; E78.2 Mixed hyperlipidemia; Z11.4 Encounter for screening for human immunodeficiency virus [HIV]; Z11.59 Encounter for screening for other viral diseases; Z79.899 Other long term (current) drug therapy; Z79.891 Long term (current) use of opiate analgesic; Z00.00 Encounter for general adult medical examination without abnormal findings | CPT/HCPCS: 80053; 80061; 84439; 84443; 85025; 86803; 87624; 87806 ==